=== PATIENT | female | born 1960 | race Caucasian/White ===

== ENCOUNTER → 2017-03-27 | Outpatient (CLI) | payer BC ==
[~2017-03-27] MED LIST: CATHETER FLUSH 10 ML SYR IV PRN; IOHEXOL 350 MG/ML 100 ML (OMNIPAQUE 350) VIAL IV ONE; NS 100 ML (IVPB) BAG IV ONE
[2017-03-27 11:10] LABS: BASOPHILS # (AUTO) 0.1 10^3/uL (0.0-0.1); BASOPHILS % (AUTO) 2 % (0-10); EOSINOPHILS # (AUTO) 0.1 10^3/uL (0.0-0.3); EOSINOPHILS % (AUTO) 2 % (0-10); LYMPHOCYTES % (AUTO) 27 % (12-44); MEAN CORPUSCULAR HEMOGLOBIN 31 PG (25-34); MEAN CORPUSCULAR HGB CONC 34 G/DL (32-36); MEAN CORPUSCULAR VOLUME 92 FL (80-99); MEAN PLATELET VOLUME 11.5 FL (7.4-10.4); MONOCYTES # (AUTO) 0.5 X 10^3 (0.0-1.0); MONOCYTES % (AUTO) 6 % (0-12); NEUTROPHILS # (AUTO) 4.7 X 10^3 (1.8-7.8); NEUTROPHILS % (AUTO) 64 % (42-75); PLATELET COUNT 187 10^3/uL (130-400); RED BLOOD COUNT 4.75 10^6/uL (4.35-5.85); RED CELL DISTRIBUTION WIDTH 12.8 % (10.0-14.5); WHITE BLOOD COUNT 7.5 10^3/uL (4.3-11.0)
[2017-03-27 11:34] LABS: BAND NEUTROPHILS 0 %; BASOPHILS % (MANUAL) 1 %; EOSINOPHILS % (MANUAL) 2 %; LYMPHOCYTES % (MANUAL) 25 %; NEUTROPHILS % (MANUAL) 66 %
[2017-03-27 11:45] LABS: BLOOD UREA NITROGEN 20 MG/DL (7-18); BUN/CREATININE RATIO 30; CREATININE SERUM 0.66 MG/DL (0.60-1.30); GFR ESTIMATED > 60
--- NOTE | 2017-03-27 12:50 | Diagnostic Imaging Report ---
PROCEDURE: CT abdomen and pelvis with contrast, rule out appendicitis. TECHNIQUE: Multiple contiguous axial images were obtained through the abdomen and pelvis after the administration of intravenous contrast. INDICATION: Right lower quadrant pain. CONTRAST: 100 mL of Omnipaque 350 was administered intravenously. FINDINGS: The lung bases appear clear. The liver demonstrates a fluid attenuation lesion measuring 1.1 cm in the central aspect of the left hepatic lobe, suggestive of a cyst. The gallbladder demonstrates no calcified stone. The pancreas, spleen, and adrenal glands appear unremarkable. The kidneys have symmetric enhancement and contrast excretion. There is no hydronephrosis. The abdominal aorta is normal in caliber. No periaortic significantly enlarged lymph nodes are seen. There is no bowel obstruction. The appendix is normal. There is suggestion of prior hysterectomy. The urinary bladder appears unremarkable. The osseous structures demonstrate mild degenerative changes in the lumbar spine and hip joints. IMPRESSION: Unremarkable exam. The appendix is normal. Dictated by: Dictated on workstation # [id number]
== END ==
LOC: RAD 10:53
PROVIDERS: ATTEND Nurse Practitioner
DX: R10.31 Right lower quadrant pain (principal)
CPT/HCPCS: 36415; 74177; 82565; 84520; 85007; 85027

== ENCOUNTER → 2017-06-04 | Outpatient (CLI) | payer BC ==
--- NOTE | 2017-06-04 13:21 | Diagnostic Imaging Report ---
Bilateral screening mammogram 2D views with tomosynthesis. The current study was also evaluated with a Computer Aided Detection (CAD) system. INDICATION: Screening. No current complaints stated on the questionnaire. COMPARISON: 05/31/2016. FINDINGS: The breasts are composed of scattered fibroglandular densities. There is a stable asymmetry along the periareolar region of the left MLO view from multiple prior exams. Tomographic analysis of the area demonstrates an elongated lesion. When older studies are compared, the nodule was present on 2010 exam and is minimally larger. It is associated with circumscribed margins suggestive of benign etiology. The right breast demonstrates no significant change. IMPRESSION: Circumscribed subcentimeter nodule minimally larger compared to 2010 exam in the upper periareolar aspect of the left breast is suggestive of benign lesion such as a cyst or fibroadenoma. Correlation with left breast ultrasound is recommended for confirmation. ACR BI-RADS Category 0: Incomplete. (Needs additional imaging evaluation). Result letter will be mailed to the patient. Note: At least 10% of breast cancer is not imaged by mammography. Dictated by: Dictated on workstation # [id number]
== END ==
LOC: RAD 09:49
PROVIDERS: ATTEND Nurse Practitioner
DX: Z12.31 Encounter for screening mammogram for malignant neoplasm of breast (principal); N63 Unspecified lump in breast
CPT/HCPCS: 77067

== ENCOUNTER → 2017-06-26 | Outpatient (CLI) | payer BC ==
--- NOTE | 2017-06-26 19:40 | Diagnostic Imaging Report ---
EXAMINATION: Left breast ultrasound. INDICATION: Left breast nodule in the upper periareolar region. FINDINGS: At 12:00 zone, 1 cm from the nipple, there is a 0.9 x 0.3 x 0.7 cm simple cyst. No other abnormality is seen in the upper left breast. This matches the size and location of abnormality seen on mammography. IMPRESSION: The lesion seen on mammography appears to correlate with a 9 mm simple cyst at 12:00 zone, 1 cm from the nipple. Annual screening mammograms are recommended. ACR BI-RADS Category 2: Benign findings. Result letter will be mailed to the patient. Note: At least 10% of breast cancer is not imaged by mammography. Dictated by: Dictated on workstation # [id number]
== END ==
LOC: RAD 08:36
PROVIDERS: ATTEND Nurse Practitioner
DX: R92.8 Other abnormal and inconclusive findings on diagnostic imaging of breast (principal)
CPT/HCPCS: 76642

== ENCOUNTER → 2019-05-25 | Outpatient (CLI) | payer BC ==
--- NOTE | 2019-05-25 13:57 | Diagnostic Imaging Report ---
INDICATION: Routine screening. COMPARISON: 06/04/2017 and 05/31/2016. TECHNIQUE: 2D and 3D bilateral screening mammography was performed with CAD. FINDINGS: Both breasts remain heterogeneously dense, limiting the sensitivity of mammography. The circumscribed ovoid density in the retroareolar 12 o'clock location of the left breast is again seen and has been shown by ultrasound to represent a cyst. No new mass or malignant appearing microcalcifications are seen. The axillae are unremarkable. IMPRESSION: No mammographic features suspicious for malignancy are identified. ACR BI-RADS Category 2: Benign findings. Result letter will be mailed to the patient. Note: At least 10% of breast cancer is not imaged by mammography. Dictated by: Dictated on workstation # [id number]
== END ==
LOC: RAD 09:19
PROVIDERS: ATTEND Nurse Practitioner
DX: Z12.31 Encounter for screening mammogram for malignant neoplasm of breast (principal)
CPT/HCPCS: 77067

== ENCOUNTER 2022-04-23 11:15 | Emergency (ER) | payer BC ==
[~2022-04-23] VITALS: Ht 172.7 cm; Wt 65.7 kg
[2022-04-23 11:19] VITALS: BP 136/93
--- NOTE | 2022-04-23 11:30 | ED Lower Extremity ---
General Stated Complaint: L LEG SWELLING / PAIN Source: patient Exam Limitations: no limitations History of Present Illness Date Seen by Provider: Apr 23, 2022 Time Seen by Provider: 11:27 Initial Comments Patient is a 62-year-old female presents ED with left leg pain and bruising. She started developing throbbing pain in her left thigh on Saturday. She states on Saturday she noted some bruising to the left lateral thigh. Increasing pain today rates it 3 out of 10 but denies take anything for pain. She denies of any recent travels, history of blood disorders or history of DVT. She states she is scheduled to leave on Saturday and wants to make sure that she does not have a DVT. She denies of any trauma. No distal calf pain, skin color changes in her feet. Denies chest pain, shortness of breath, fever, chills, redness, abdominal pain, vomiting, diarrhea. She does take fish oil daily. Allergies and Home Medications Allergies Coded Allergies: No Known Drug Allergies (Unverified , 09/12/12) Patient Home Medication List Home Medication List Reviewed: Yes Tramadol HCl (Tramadol HCl) 50 Mg Tablet, 50 MG PO Q4H PRN for PAIN-MODERATE (5- 7) Prescribed by: HEMALATHA HANDY on 04/23/22 1213 Review of Systems Constitutional: No chills, No malaise, No weakness EENTM: No hearing loss, No blurred vision, No double vision Respiratory: No cough, No dyspnea on exertion, No short of breath Cardiovascular: No chest pain, No edema Gastrointestinal: No abdominal pain, No diarrhea, No nausea, No vomiting Genitourinary: No decreased output, No discharge Musculoskeletal: muscle pain Skin: change in color, other (Bruising to left) All Other Systems Reviewed Negative Unless Noted: Yes Past [id number]-Picuds-Skrlxj Hx Past Medical History Reproductive Disorders: No Physical Exam Vital Signs Vital Signs - First Documented 04/23/22 11:19 Temp 36.1 Pulse 107 Resp 22 B/P (MAP) 136/93 (107) Pulse Ox 95 Capillary Refill : Height, Weight, BMI Height: '" Weight: lbs. oz. kg; BMI Method: General Appearance: WD/WN, no apparent distress HEENT: PERRL/EOMI, normal ENT inspection, TMs normal, pharynx normal Neck: non-tender, full range of motion, supple, normal inspection Cardiovascular: regular rate, rhythm, no edema, no gallop, no JVD, no murmur Respiratory: chest non-tender, lungs clear, normal breath sounds, no respiratory distress, no accessory muscle use Gastrointestinal: normal bowel sounds, non tender, soft, no organomegaly, no pulsatile mass Back: normal inspection, no CVA tenderness Legs: left leg ecchymosis (Left lateral thigh), left leg pain Knees: bilateral knee non-tender, bilateral knee normal inspection, bilateral knee normal range of motion Ankles: bilateral ankle non-tender, bilateral ankle normal inspection, bilateral ankle normal range of motion Feet: bilateral foot non-tender, bilateral foot normal inspection, bilateral foot normal range of motion, bilateral foot other (Dorsalis pedis bilateral +2, cap refill less than 2 bilateral. 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 Dorsalis pedis bilateral +2, posterior tibialis +2. Cap refill less than 2. Adequate blood flow into the lower extremities. No knee tenderness or hip tenderness. No trochanteric tenderness of the left hip. No evidence of cellulitis. She denies of any specific injury. She does have some superficial bruising. No bruising elsewhere suggesting more systemic. Appears to be more localized. Recommend ice anti-inflammatories. We will provide a few days worth of breakthrough pain. She denies of any cramping in the leg but did have some throbbing pain worse last night. Appears to be more muscular contusion type bruising. If any worsening symptoms return back to ED for further evaluation. Denies chest pain, shortness of breath, headache, dizziness. Patient appears in no acute distress. Stable gait. Impression Primary Impression: Superficial bruising of lower leg Disposition: HOME, SELF-CARE Condition: Stable Departure-Patient Inst. Decision time for Depature: 12:12 Referrals: [facility] [place]LOCAL PHYSICIAN (PCP) Primary Care Physician Patient Instructions: Minor Contusion ED Scripts Tramadol HCl (Tramadol HCl) 50 Mg Tablet 50 MG PO Q4H PRN for PAIN-MODERATE (5-7), #6 TAB Prov: GIOVANNY PATEL 04/23/22 GIOVANNY PATEL Apr 23, 2022 11:29
--- NOTE | 2022-04-23 12:08 | Diagnostic Imaging Report ---
INDICATION: Left leg pain. Left leg venous Doppler study was performed in the routine fashion with color flow Doppler and waveform analysis. FINDINGS: The left common femoral vein, superficial femoral vein, popliteal vein and visualized portion of the posterior tibial vein show normal compressibility and venous flow patterns. There is normal augmentation. IMPRESSION: No evidence of deep vein thrombosis of the major veins of the left leg. Dictated by: Dictated on workstation # [id number]
[2022-04-23] MEDS ORDERED: TRM50T PO (12:13)
== END 2022-04-23 12:17 | disposition home or self-care (01) ==
LOC: EDUNIT# 11:15 → ER 11:16
DX: M79.81 Nontraumatic hematoma of soft tissue (principal)

== ENCOUNTER 2022-11-07 10:58 | Outpatient (CLI) | payer BC ==
[~2022-11-07] VITALS: Ht 170.2 cm; Wt 67.5 kg
[~2022-11-07 10:58] MED LIST changes: -CATHETER FLUSH 10 ML SYR IV PRN; -IOHEXOL 350 MG/ML 100 ML (OMNIPAQUE 350) VIAL IV ONE; -NS 100 ML (IVPB) BAG IV ONE; +TRM50T PO
[2022-11-07] MEDS ORDERED: ASCO100024 PO (12:21)
[2022-11-07] MEDS ORDERED: MULT-593 PO (12:21)
[2022-11-07] MEDS ORDERED: OMEG100032 PO (12:21)
[2022-11-07] MEDS ORDERED: CALC-823 PO (12:21)
== END 2022-11-07 12:24 | disposition home or self-care (01) ==
LOC: PREOP 10:58
PROVIDERS: ATTEND Surgery
DX: Z01.818 Encounter for other preprocedural examination (principal)

== ENCOUNTER 2022-11-15 11:48 | Day surgery (SDC) | payer BC ==
[~2022-11-15] VITALS: Ht 170 cm; Wt 67.5 kg
[~2022-11-15 11:48] MED LIST changes: +ASCO100024 PO; +CALC-823 PO; +MULT-593 PO; +OMEG100032 PO
[2022-11-15] MEDS ORDERED: LACTATED RINGERS 1,000 ML IV STA (11:53)
[2022-11-15 12:05] VITALS: BP 99/70
[2022-11-15] MEDS ORDERED: MIDAZOLAM 2 MG/2 ML (VERSED) VIAL ONE (12:40)
[2022-11-15] MEDS ORDERED: PROPOFOL INJECTION 50 ML IV ONE (12:40)
[2022-11-15 13:15] VITALS: BP 77/52
[2022-11-15 13:20] VITALS: BP 78/51
--- NOTE | 2022-11-15 13:20 | Progress Note-Post Operative ---
Post-Operative Progess Note Surgeon (s)/Clinical Systems Analyst (s) Surgeon LUANN REEDER DO Clinical Systems Analyst: none Pre-Operative Diagnosis + Cologuard Post-Operative Diagnosis Colon polyps diverticula int hemorrhoids Procedure & Operative Findings Date of Procedure 11/15/22 Procedure Performed/Findings Colonoscopy with snare polypectomy PROCEDURE NOTE: After informed consent was obtained, the patient was brought to the endoscopy suite, placed in bed in left lateral decubitus position. She was administered IV sedation by the INCUBATOR MACHINE OPERATOR who then monitored her vitals the entire time, heart rate, blood pressure and pulse ox and the scope was inserted, pushed all the way to about 150 cm and pushed into the cecum. On the way in found two larger poly ps; one in the descending colon and one in the transverse colon. Both were removed with hot snare polypectomy. Once in the cecum, took a picture of appendiceal orifice and noted the ileocecal valve. Then slowly withdrew the scope insufflating to look c ircumferentially at the mora starting in the cecum and up the ascending colon; where I found another polyp which was also removed with the snare. Continued up to the hepatic flexure, then down the transverse colon to the splenic flexure, into the descending colon and down into the sigmoid and then into the rectum. I found another small polyp in the rectum which I also removed with a snare. Finally into the rectal vault and retroflexed the scope. Took a picture of the internal hemorrhoids. The patient tolerated the procedure. She was recovered in endoscopy suite. Recommended for repeat colonoscopy in 3 years. Anesthesia Type IV sedation by INCUBATOR MACHINE OPERATOR Estimated Blood Loss Estimated blood loss (mL): scant Specimens/Packing Specimens Removed desc colon polyp transverse colon polyp asc colon polyp rectal polyp LUANN REEDER DO Nov 15, 2022 13:20
--- NOTE | 2022-11-15 13:21 | Endoscopy Discharge Instruct ---
Endo Procedure/Findings Findings 1.: Polyp 2.: Diverticulosis 3.: Internal Hemorrhoids Discharge Instructions - Activity: You might feel a little sleepy until tomorrow. This is due to the medicine you received to relax you. Until tomorrow, you should: NOT drive a car, operate machinery or power tools. NOT drink any alcoholic beverages. NOT make any important decisions or sign importortant papers. Do not return to work until tomorrow, unless otherwise instructed. Resume previous activities tomorrow. Diet: Start by taking liquids. If you tolerate liquids, advance to solid food. 1.: Colonscopy in 3 years Notify Physician - If you experience excessive bleeding, unusual abdominal pain, fever, or chest pain, contact your doctor immediately. LUANN REEDER DO Nov 15, 2022 13:21
[2022-11-15 13:25] VITALS: BP 103/65
[2022-11-15 13:56] VITALS: BP 103/65
--- NOTE | 2022-11-15 13:56 | Anesthesia-General Post-Op ---
MAC Patient Condition Mental Status/LOC: Same as Preop Cardiovascular: Satisfactory Nausea/Vomiting: Absent Respiratory: Satisfactory Pain: Controlled Complications: Absent Post Op Complications Complications None Follow Up Care/Instructions Patient Instructions None needed. Anesthesiology Discharge Order Discharge Order Patient is doing well, no complaints, stable vital signs, no apparent adverse anesthesia problems. No complications reported per nursing. DEZ DIEZ CRNA Nov 15, 2022 13:56
== END 2022-11-15 14:00 | disposition home or self-care (01) ==
LOC: ENDO 11:48
PROVIDERS: ATTEND Surgery

== ENCOUNTER 2023-02-04 08:11 | Emergency (ER) | payer BC ==
[~2023-02-04] VITALS: Ht 170 cm; Wt 63.5 kg
--- NOTE | 2023-02-04 09:28 | ED General ---
General Chief Complaint: Back Problems Stated Complaint: LOWER BACK PAIN | LIMITED MOBILITY IN BOTH ARMS Source of Information: Patient History of Present Illness Date Seen by Provider: Feb 04, 2023 Time Seen by Provider: 09:12 Initial Comments PT ARRIVES VIA POV FROM HOME PT STATES THAT ABOUT 5 WEEKS AGO, SHE BEGAN HAVING PAIN IN HER RIGHT SHOULDER THEN IT ALSO STARTED IN HER LEFT SHOULDER THEN IT STARTED IN HER LOWER BACK NOW HAS PAIN THAT SHOOTS ALL THE WAY DOWN HER RIGHT ARM AND HER RIGHT FINGERS SOMETIMES FEEL TINGLY. SHE HAS SEVERE PAIN IN RIGHT SHOULDER WITH ANY MOVEMENT. NO URINARY SYMPTOMS--NO DYSURIA OR FREQUENCY OR INCONTINENCE OR RETENTION NO CHANGES IN BOWEL HABITS NO NAUSEA/VOMITING, BUT HAS HAD A DECREASED APPETITE FOR THE LAST MONTH NO NECK PAIN NO HEADACHE NO VISION CHANGES NO CHEST PAIN OR SHORTNESS OF BREATH NO ABDOMINAL PAIN NO HIP OR LEG PAIN OR PARESTHESIAS OR MOTOR DEFICITS. SHE WAS SEEN AT [facility] OVER THE WEEKEND AND WAS PRESCRIBED ALEXEY TRIM DUE TO PT'S HISTORY OF PILONIDAL CYST PT IS NOT HAVING ANY SYMPTOMS THAT ARE TYPICAL OF PILONIDAL CYST. NO HISTORY OF SIMILAR PROBLEMS SHE DOES NOT HAVE ANY CHRONIC MEDICAL PROBLEMS AND DOES NOT TAKE ANY DAILY PRESCRIPTION MEDICATIONS--ONLY VITAMINS SHE HAS HAD A ROUTINE [facility] PHYS[facility], SCREENING MAMMOGRAM AND SCREENING COLONOSCOPY IN THE LAST 3-4 MONTHS--ALL NORMAL, PER PT. 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 NO KNOWN INJURY, BUT WORK IS FAIRLY PHYSICAL. PCP: [facility], DR. LUKASZ BOUCHER Allergies and Home Medications Allergies Coded Allergies: No Known Drug Allergies (Unverified , 09/12/12) Patient Home Medication List Ascorbic Acid (Vitamin C) 1,000 Mg Tablet, PO DAILY, (Reported) Entered as Reported by: LUKASZ GUPTA on 11/07/22 1221 Calcium Carbonate (Calcium) 500 Mg Calcium (1250 Mg) Tablet, 500 MG PO DAILY, (Reported) Entered as Reported by: LUKASZ GUPTA on 11/07/22 1221 Cyclobenzaprine HCl (Cyclobenzaprine HCl) 10 Mg Tablet, 10 MG PO Q8H PRN for SPASMS Prescribed by: ANDI MCDONALD on 02/04/23 1127 Ketorolac Tromethamine (Ketorolac Tromethamine) 10 Mg Tablet, 10 MG PO Q6H Prescribed by: ANDI MCDONALD on 02/04/23 1127 Multivitamin with Minerals (Multiple Vitamin) 1 Each Tablet, 1 EACH PO DAILY, (Reported) Entered as Reported by: LUKASZ GUPTA on 11/07/22 1221 Lorman-3/Dha/Epa/Fish Oil (Fish Oil 1,000 mg Softgel) 1,000 Mg (120 Mg-180 Mg) Capsule, 1,000 MG PO DAILY, (Reported) Entered as Reported by: LUKASZ GUPTA on 11/07/22 1221 Tramadol HCl (Tramadol HCl) 50 Mg Tablet, 50 MG PO Q6H PRN for PAIN Prescribed by: ANDI MCDONALD on 02/04/23 1128 Review of Systems Review of Systems Constitutional: no symptoms reported EENTM: no symptoms reported Respiratory: no symptoms reported Cardiovascular: no symptoms reported Gastrointestinal: No abdominal pain, No constipation, No diarrhea; loss of appetite; No nausea, No vomiting Genitourinary: no symptoms reported Musculoskeletal: see HPI, back pain, joint pain, muscle pain Skin: no symptoms reported Psychiatric/Neurological: See HPI; Denies Headache; Paresthesia; Denies Weakness Hematologic/Lymphatic: No Symptoms Reported Immunological/Allergic: no symptoms reported Past Bbzqhob-Mjdjxe-Nylpzf Hx Patient Social History Tobacco Use?: Yes (1/2 PPD) Smoking Status: Current Everyday Smoker Smokeless Tobacco Frequency: Never a User Use of E-Cig and/or Vaping dev: No Use of E-Cig and/or Vaping Shade: Never a User Substance use?: No Alcohol Use?: No Immunizations Up To Date First/Initial COVID19 Vaccinat: NO Second COVID19 Vaccination Jewel: NO Third COVID19 Vaccination Date: NO Seasonal Allergies Seasonal Allergies: No Past Medical History Surgeries: Yes ( X 1; HYST/USO;BILAT KNEE SCOPES) Section, Hysterectomy, Oophorectomy, Orthopedic Respiratory: No Cardiac: No Neurological: No Reproductive Disorders: Yes Female Reproductive Disorders: 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 oz. kg; 23.35 BMI Method: General Appearance: No Apparent Distress, WD/WN, Thin HEENT: PERRL/EOMI Neck: Full Range of Motion, Normal Inspection, Non Tender, Supple Respiratory: Chest Non Tender, Normal Breath Sounds, No Accessory Muscle Use, No Respiratory Distress Cardiovascular: Regular Rate, Rhythm, No Edema, No JVD, No Murmur, Normal Peripheral Pulses Gastrointestinal: Non Tender, Soft Back: No CVA Tenderness, Decreased Range of Motion, Other (DIFFUSE LUMBAR SPINE TENDERNESS. THERE IS NO EVIDENCE OF PILONIDAL CYST/ABSCESS OR TENDERNESS TO THE EXPECTED AREA ) Extremity: Normal Capillary Refill, No Pedal Edema, Other (PAIN WITH ANY MOVEMENT OF RIGHT SHOULDER, BUT IT IS NON-TENDER TO PALPATION. DISTAL MOTOR/SENSORY/VASCULAR INTACT. ) Neurologic/Psychiatric: Alert, Oriented x3, No Motor/Sensory Deficits, Normal Mood/Affect, open source developer II-XII Norm as Tested Reflexes: 2+ Bicep (R), 2+ Bicep (L), 2+ Tricep (R), 2+ Tricep (L), 2+ Knee (R), 2+ Knee (L), 2+ Ankle (R), 2+ Ankle (L) Skin: Normal Color, Warm/Dry; No Rash Progress/Results/Core Measures Suspected Sepsis SIRS Temperature: Pulse: Respiratory Rate: Laboratory Tests 02/04/23 09:22: White Blood Count 9.9 Blood Pressure / Mean: Laboratory Tests 02/04/23 09:22: Creatinine 0.69, Platelet Count 249, Total Bilirubin 0.3 Results/Orders Lab Results Laboratory Tests Test 02/04/23 09:22 02/04/23 10:20 Range/Units White Blood Count 9.9 4.3-11.0 10^3/uL Red Blood Count 4.44 3.80-5.11 10^6/uL Hemoglobin 13.6 11.5-16.0 g/dL Hematocrit 41 35-52 % Mean Corpuscular Volume 92 80-99 fL Mean Corpuscular Hemoglobin 31 25-34 pg Mean Corpuscular Hemoglobin Concent 33 32-36 g/dL Red Cell Distribution Width 12.8 10.0-14.5 % Platelet Count 249 130-400 10^3/uL Mean Platelet Volume 10.7 9.0-12.2 fL Immature Granulocyte % (Auto) 0 % Neutrophils (%) (Auto) 76 H 42-75 % Lymphocytes (%) (Auto) 14 12-44 % Monocytes (%) (Auto) 7 0-12 % Eosinophils (%) (Auto) 2 0-10 % Basophils (%) (Auto) 1 0-10 % Neutrophils # (Auto) 7.6 1.8-7.8 10^3/uL Lymphocytes # (Auto) 1.4 1.0-4.0 10^3/uL Monocytes # (Auto) 0.7 0.0-1.0 10^3/uL Eosinophils # (Auto) 0.2 0.0-0.3 10^3/uL Basophils # (Auto) 0.1 0.0-0.1 10^3/uL Immature Granulocyte # (Auto) 0.0 0.0-0.1 10^3/uL Erythrocyte Sedimentation Rate 29 0-30 MM/HR Sodium Level 140 135-145 MMOL/L Potassium Level 3.9 3.6-5.0 MMOL/L Chloride Level 107 98-107 MMOL/L Carbon Dioxide Level 23 21-32 MMOL/L Anion Gap 10 5-14 MMOL/L Blood Urea Nitrogen 9 7-18 MG/DL Creatinine 0.69 0.60-1.30 MG/DL Estimat Glomerular Filtration Rate 98 BUN/Creatinine Ratio 13 Glucose Level 99 70-105 MG/DL Calcium Level 9.7 8.5-10.1 MG/DL Corrected Calcium 9.5 8.5-10.1 MG/DL Magnesium Level 2.1 1.6-2.4 MG/DL Total Bilirubin 0.3 0.1-1.0 MG/DL Aspartate Amino Transf (AST/SGOT) 18 5-34 U/L Alanine Aminotransferase (ALT/SGPT) 12 0-55 U/L Alkaline Phosphatase 57 40-136 U/L Total Creatine Kinase 92 29-168 U/L Creatine Kinase MB 1.7 <6.6 NG/ML Myoglobin 20.9 10.0-92.0 NG/ML C-Reactive Protein High Sensitivity 1.50 H 0.00-0.50 MG/DL Total Protein 7.5 6.4-8.2 GM/DL Albumin 4.2 3.2-4.5 GM/DL TSH [place] Testing 0.80 0.35-4.94 UIU/ML Urine Color YELLOW Urine Clarity CLEAR Urine pH 6.0 5-9 Urine Specific [place] <=1.005 1.016-1.022 Urine Protein NEGATIVE NEGATIVE Urine Glucose (UA) NEGATIVE NEGATIVE Urine Ketones NEGATIVE NEGATIVE Urine Nitrite NEGATIVE NEGATIVE Urine Bilirubin NEGATIVE NEGATIVE Urine Urobilinogen 0.2 < = 1.0 MG/DL Urine Leukocyte Esterase NEGATIVE NEGATIVE Urine RBC (Auto) NEGATIVE NEGATIVE Urine RBC RARE /HPF Urine WBC 0-2 /HPF Urine Squamous Epithelial Cells 2-5 /HPF Urine Crystals PRESENT H /LPF Urine Amorphous Sediment FEW MISSY URATES H /LPF Urine Bacteria FEW H /HPF Urine Casts NONE /LPF Urine Mucus NEGATIVE /LPF Urine Culture Indicated YES My Orders Orders - ANDI MCDONALD DO Ed Iv/Invasive Line Start (02/04/23 09:21) Cbc With Automated Diff (02/04/23 09:21) Comprehensive Metabolic Panel (02/04/23 09:21) Creatine Kinase (02/04/23 09:21) Creatine Kinase Mb (02/04/23 09:21) Hs C Reactive Protein (02/04/23 09:21) Magnesium (02/04/23 09:21) Thyroid Analyzer (02/04/23 09:21) Ua Culture If Indicated (02/04/23 09:21) Erythrocyte Sedimentation Rate (02/04/23 09:21) Myoglobin Serum (02/04/23 09:21) Ed Iv/Invasive Line Start (02/04/23 09:21) Lactated Ringers (Lr 1000 Ml Iv Solution (02/04/23 09:30) Tick Panel With Lyme Eia (02/04/23 09:21) Ketorolac Injection (Toradol Injection) (02/04/23 10:00) Chest Pa/Lat (2 View) (02/04/23 09:46) Shoulder, Bilateral, 3 Views (02/04/23 09:46) Ct Thoracic/Lumbar Spine Wo (02/04/23 09:46) Ct Cervical Spine Wo (02/04/23 09:58) Urine Culture (02/04/23 10:20) Medications Given in ED Current Medications Medications Dose Ordered Sig/Sammie Route Start Time Stop Time Status Last Admin Dose Admin Ketorolac Tromethamine 30 mg ONCE ONCE IVP 02/04/23 10:00 02/04/23 10:01 DC 02/04/23 09:59 30 MG Lactated Ringer's 1,000 ml @ 0 mls/hr Q0M ONCE IV 02/04/23 09:30 02/04/23 09:31 DC 02/04/23 09:45 1,000 MLS/HR Vital Signs/I&O 02/04/23 09:08 Temp 36.0 Pulse 90 Resp 16 B/P (MAP) 120/81 (94) Capillary Refill : Progress Note : Progress Note GIVEN: -IV FLUIDS -TORADOL Diagnostic Imaging Comments ALL PER RADIOLOGIST REPORTS AT [address] CT CERVICAL SPINE-- FINDINGS: Grade 1 anterolisthesis of C3 on C4, C4 on C5, and C5 on C6. Vertebral body heights are preserved. No fractures. Moderate scattered degenerative endplate changes and facet arthropathy. No CT evidence of high-grade spinal canal stenosis. No acute findings in the visualized paravertebral soft tissues. The lung apices are clear. IMPRESSION: Moderate spondylotic changes in the cervical spine. No acute findings. CT THORACIC/LUMBAR SPINE-- FINDINGS: Normal alignment. Vertebral body heights are preserved. No fractures. Moderate to severe degenerative endplate changes are greatest in the midthoracic spine. No CT evidence of high-grade spinal canal stenosis. Visualized pelvis is intact. Well-circumscribed 0.4 cm pulmonary nodule in the right lower lobe. No acute findings in the visualized paravertebral soft tissues. IMPRESSION: 1. Moderate to severe degenerative endplate changes are greatest in the midthoracic spine. 2. No acute CT findings in the thoracic or lumbar spine. 3. There is a 0.4 cm solid pulmonary nodule in the right lower lobe. No priors are available for comparison. Fleischner Society criteria would recommend optional followup chest CT in 12 months if patient is high-risk. CXR-- Findings: No pulmonary mass or consolidation. No pleural effusion or pneumothorax. Normal heart size and mediastinal contours. Impression: No acute cardiopulmonary process. BILATERAL SHOULDERS-- FINDINGS: Three views of the shoulder show no fracture, dislocation, or other acute abnormalities. There are mild degenerative changes of the glenohumeral joint with narrowing of the inferior joint space with small osteophytes beginning to form. IMPRESSION: Mild degenerative changes of the right shoulder. The left shoulder is unremarkable. Reviewed: Reviewed by Me Departure Impression Primary Impression: Low back pain Additional Impressions: Shoulder pain UTI (urinary tract infection) DEGENERATIVE CHANGES OF SPINE Disposition: HOME, SELF-CARE Condition: Stable Departure-Patient Inst. Decision time for Depature: 11:20 Referrals: MARGARITO BHANDARI MD, JULIE A MD (PCP/Family) Primary Care Physician Patient Instructions: Incidental Findings, Low Back Pain ED, Shoulder Pain ED, Urinary Tract Infection, Adult ED Add. Discharge Instructions: CONTINUE YOUR ANTIBIOTIC PRESCRIBED ALTERNATE ICE AND MOIST HEAT TO SORE AREAS AT 20 MINUTE INTERVALS FOLLOW UP WITH DR. BHANDARI, ORTHOPEDIC SURGEON, FOR FURTHER CARE--CALL TODAY TO SCHEDULE AN APPOINTMENT FOLLOW UP WITH YOUR REGULAR DRDar FOR ROUTINE FOLLOW UP CARE All discharge instructions reviewed with patient and/or family. Voiced understanding. Scripts Ketorolac Tromethamine (Ketorolac Tromethamine) 10 Mg Tablet 10 MG PO Q6H for Pain, #15 TAB Prov: ANDI MCDONALD DO 02/04/23 Tramadol HCl (Tramadol HCl) 50 Mg Tablet 50 MG PO Q6H PRN for PAIN for 3 Days, #20 TAB 0 Refills Prov: ANDI MCDONALD DO 02/04/23 Cyclobenzaprine HCl (Cyclobenzaprine HCl) 10 Mg Tablet 10 MG PO Q8H PRN for SPASMS, #15 TAB 0 Refills Prov: ANDI MCDONALD DO 02/04/23 ANDI MCDONALD DO Feb 04, 2023 09:28
[2023-02-04 09:30] LABS: BASOPHILS # (AUTO) 0.1 10^3/uL (0.0-0.1); BASOPHILS % (AUTO) 1 % (0-10); EOSINOPHILS # (AUTO) 0.2 10^3/uL (0.0-0.3); EOSINOPHILS % (AUTO) 2 % (0-10); HEMATOCRIT 41 % (35-52); HEMOGLOBIN 13.6 g/dL (11.5-16.0); LYMPHOCYTES # (AUTO) 1.4 10^3/uL (1.0-4.0); LYMPHOCYTES % (AUTO) 14 % (12-44); MEAN CORPUSCULAR HEMOGLOBIN 31 pg (25-34); MEAN CORPUSCULAR HGB CONC 33 g/dL (32-36); MEAN CORPUSCULAR VOLUME 92 fL (80-99); MEAN PLATELET VOLUME 10.7 fL (9.0-12.2); MONOCYTES # (AUTO) 0.7 10^3/uL (0.0-1.0); MONOCYTES % (AUTO) 7 % (0-12); NEUTROPHILS # (AUTO) 7.6 10^3/uL (1.8-7.8); NEUTROPHILS % (AUTO) 76 % (42-75); PLATELET COUNT 249 10^3/uL (130-400); WHITE BLOOD COUNT 9.9 10^3/uL (4.3-11.0)
[2023-02-04] MEDS ORDERED: LACTATED RINGERS 1,000 ML IV ONE (09:30)
[2023-02-04 09:52] LABS: ALBUMIN 4.2 GM/DL (3.2-4.5); BILIRUBIN,TOTAL 0.3 MG/DL (0.1-1.0); CALCIUM 9.7 MG/DL (8.5-10.1); CREATININE SERUM 0.69 MG/DL (0.60-1.30); MAGNESIUM 2.1 MG/DL (1.6-2.4); POTASSIUM 3.9 MMOL/L (3.6-5.0); TOTAL PROTEIN 7.5 GM/DL (6.4-8.2)
[2023-02-04 09:54] LABS: ERYTHROCYTE SEDIMENTATION RATE 29 MM/HR (0-30)
[2023-02-04] MEDS ORDERED: KETOROLAC 30 MG/ML VIAL IVP ONE (10:00)
[2023-02-04 10:12] LABS: CREATINE KINASE MB 1.7 NG/ML (<6.6); TSH (THYROID ANALYZER) 0.8 UIU/ML (0.35-4.94)
[2023-02-04 10:30] LABS: BILIRUBIN,URINE NEGATIVE (NEGATIVE); CLARITY,URINE CLEAR; COLOR,URINE YELLOW; GLUCOSE, URINE (UA) NEGATIVE (NEGATIVE); KETONES,URINE NEGATIVE (NEGATIVE); LEUKOCYTE ESTERASE ,URINE NEGATIVE (NEGATIVE); NITRITE,URINE NEGATIVE (NEGATIVE); PROTEIN,URINE NEGATIVE (NEGATIVE)
--- NOTE | 2023-02-04 10:37 | Diagnostic Imaging Report ---
INDICATION: Bilateral shoulder pain. FINDINGS: Three views of the shoulder show no fracture, dislocation, or other acute abnormalities. There are mild degenerative changes of the glenohumeral joint with narrowing of the inferior joint space with small osteophytes beginning to form. IMPRESSION: Mild degenerative changes of the right shoulder. The left shoulder is unremarkable. Dictated by: Dictated on workstation # [id number]
--- NOTE | 2023-02-04 10:39 | Diagnostic Imaging Report ---
CHEST PA/LAT (2 VIEW) Indication: Chest pain Comparison: None available Findings: No pulmonary mass or consolidation. No pleural effusion or pneumothorax. Normal heart size and mediastinal contours. Impression: No acute cardiopulmonary process. Dictated by: Dictated on workstation # [id number]
[2023-02-04 10:41] LABS: AMORPHOUS SEDIMENT,UR FEW AMOR URATES /LPF; BACTERIA,URINE FEW /HPF; RBC,URINE RARE /HPF; WBC,URINE 0-2 /HPF
--- NOTE | 2023-02-04 10:59 | Diagnostic Imaging Report ---
PROCEDURE: CT cervical spine without contrast. TECHNIQUE: Multiple contiguous axial images were obtained through the cervical spine without the use of intravenous contrast. Sagittal and coronal reformations were then performed. Auto Exposure Controls were utilized during the CT exam to meet ALARA standards for radiation dose reduction. INDICATION: Neck pain and bilateral shoulder pain. COMPARISON: None. FINDINGS: Grade 1 anterolisthesis of C3 on C4, C4 on C5, and C5 on C6. Vertebral body heights are preserved. No fractures. Moderate scattered degenerative endplate changes and facet arthropathy. No CT evidence of high-grade spinal canal stenosis. No acute findings in the visualized paravertebral soft tissues. The lung apices are clear. IMPRESSION: Moderate spondylotic changes in the cervical spine. No acute findings. Dictated by: Dictated on workstation # [id number]
--- NOTE | 2023-02-04 11:07 | Diagnostic Imaging Report ---
PROCEDURE: CT thoracic and lumbar spine without contrast. TECHNIQUE: Multiple contiguous axial images were obtained through the thoracic and lumbar spine without the use of intravenous contrast. Sagittal and coronal reformations were then performed. All CT scans use one or more of the following dose optimizing techniques: automated exposure control, MA and/or KvP adjustment based on a patient size and exam type, or iterative reconstruction. INDICATION: Back pain. COMPARISON: CT cervical spine without contrast also performed today. FINDINGS: Normal alignment. Vertebral body heights are preserved. No fractures. Moderate to severe degenerative endplate changes are greatest in the midthoracic spine. No CT evidence of high-grade spinal canal stenosis. Visualized pelvis is intact. Well-circumscribed 0.4 cm pulmonary nodule in the right lower lobe. No acute findings in the visualized paravertebral soft tissues. IMPRESSION: 1. Moderate to severe degenerative endplate changes are greatest in the midthoracic spine. 2. No acute CT findings in the thoracic or lumbar spine. 3. There is a 0.4 cm solid pulmonary nodule in the right lower lobe. No priors are available for comparison. Fleischner Society criteria would recommend optional followup chest CT in 12 months if patient is high-risk. Dictated by: Dictated on workstation # [id number]
[2023-02-04] MEDS ORDERED: KETO10TA PO (11:27)
[2023-02-04] MEDS ORDERED: CYCL10TA25 PO (11:27)
[2023-02-04] MEDS ORDERED: TRM50T PO (11:27)
[2023-02-04 11:48] VITALS: BP 113/83
== END 2023-02-04 11:51 | disposition home or self-care (01) ==
LOC: EDUNIT# 08:11 → ER 08:14
DX: M54.50 Low back pain, unspecified (principal); M25.511 Pain in right shoulder; G31.89 Other specified degenerative diseases of nervous system; N39.0 Urinary tract infection, site not specified; F17.210 Nicotine dependence, cigarettes, uncomplicated
CPT/HCPCS: 36415; 71046; 72125; 72128; 72131; 80053; 81000; 82550; 82553; 83735; 83874; 84443; 85025; 85652; 86141; 86618; 86666; 86668; 86757; 87088

== ENCOUNTER → 2023-02-19 | Outpatient (CLI) | payer BC ==
[~2023-02-19] MED LIST changes: +CYCL10TA25 PO; +KETO10TA PO
== END ==
LOC: ORTHO 08:54
PROVIDERS: ATTEND Orthopaedic Surgery
DX: M47.22 Other spondylosis with radiculopathy, cervical region (principal)
CPT/HCPCS: 99203

== ENCOUNTER → 2023-04-12 | Outpatient (CLI) | payer BC ==
--- NOTE | 2023-04-12 11:14 | Diagnostic Imaging Report ---
PROCEDURE: MR imaging cervical spine without contrast. TECHNIQUE: Multiplanar, multisequence MR imaging of the cervical spine was performed without contrast. DATE: April 12, 2023. COMPARISON: None. INDICATION: 63-year-old female, bilateral shoulder pain and neck pain. FINDINGS: There is normal cervical spine alignment. The bone marrow signal is unremarkable. The visualized spinal cord is unremarkable. The disc heights are well preserved. C2-C3: There is no disc bulge. There are mild bilateral facet degenerative changes. There is no foraminal narrowing. There is no spinal canal stenosis. C3-C4: There is no disc bulge. There are left facet degenerative changes and mild left uncovertebral degenerative changes. There is moderate to severe left foraminal narrowing. There is no spinal canal stenosis. C4-C5: There is no disc bulge. There are facet degenerative changes. There is severe right foraminal narrowing. There is no spinal canal stenosis. C5-C6: There is a small posterior disc osteophyte complex . There are left uncovertebral and facet degenerative changes. There is severe left foraminal narrowing. There is no high-grade spinal canal stenosis. C6-C7: There is a small posterior disc osteophyte complex. There are left facet degenerative changes. There is no high-grade foraminal narrowing. There is no spinal canal stenosis. C7-T1: There is no disc bulge. There are left facet degenerative changes. There is mild left foraminal narrowing. There is no spinal canal stenosis. IMPRESSION: 1. Multilevel disc, uncovertebral, and facet degenerative changes of the cervical spine as described in detail level by level above. 2. No identified focal concerning bone lesion. 3. No identified abnormal signal in the cervical spinal cord. Dictated by: Dictated on workstation # [id number]
== END ==
LOC: RAD 09:45
PROVIDERS: ATTEND Orthopaedic Surgery
DX: M47.22 Other spondylosis with radiculopathy, cervical region (principal); M48.02 Spinal stenosis, cervical region; M25.78 Osteophyte, vertebrae; M47.893 Other spondylosis, cervicothoracic region; M48.03 Spinal stenosis, cervicothoracic region
CPT/HCPCS: 72141